=== PATIENT | female | born 1965 | race Asian ===

== ENCOUNTER 2019-05-21 18:43 | Emergency (ER) | payer BC ==
[2019-05-21] MEDS ORDERED: Amoxicillin 500 MG Cap PO ONE ×2 (19:50→20:25)
--- NOTE | 2019-05-21 19:54 | EDM.PDOC ---
ED HPI GENERAL MEDICAL PROBLEM - General Chief Complaint: ENT Problem Stated Complaint: TOOTH PAIN Time Seen by Provider: 05/21/19 19:33 Source of Information: Reports: Patient, RN Notes Reviewed - History of Present Illness INITIAL COMMENTS - FREE TEXT/NARRATIVE: onset of pain L lower incissors a few days ago, worse today. Aware of inflamation gum tissue base of teeth. There's been no swelling. No fever or chills. Right Lower Tooth/Teeth Pain Score (Numeric/FACES): 9 - Related Data Allergies Allergy/AdvReac Type Severity Reaction Status Date / Time No Known Allergies Allergy Verified 05/21/19 19:28 Home Meds: Home Meds Amoxicillin 500 mg PO TID #30 capsule 05/21/19 [Rx] Past Medical History - Past Health History Medical/Surgical History: Denies Medical/Surgical History Social & Family History - Tobacco Use Smoking Status *Q: Current Status Unknown ED ROS ENT - Review of Systems Review Of Systems: See Below Constitutional: Denies: Fever, Chills HEENT: Reports: Dental Pain, Other. Denies: Throat Pain, Throat Swelling (No intraoral swelling) Respiratory: Reports: No Symptoms Cardiovascular: Reports: No Symptoms GI/Abdominal: Reports: No Symptoms Musculoskeletal: Reports: No Symptoms Skin: Reports: No Symptoms Neurological: Reports: No Symptoms ED EXAM, ENT - Physical Exam Exam: See Below General Appearance: Alert, Mild Distress Mouth/Throat: Other (There is mild swelling of a lot of plaque base of the gums of her lower incisors and mouth. Very slight tenderness over the right lower lateral incisor.). No: Pharyngeal Erythema, Throat Swelling Head: No: Facial Swelling, Facial Tenderness Neck: Supple. No: Lymphadenopathy (L), Lymphadenopathy (R) Respiratory/Chest: No Respiratory Distress Cardiovascular: Regular Rate, Rhythm Neurological: Alert, Oriented, No Motor/Sensory Deficits Skin: Warm, Dry, Normal Color Course - Vital Signs Last Recorded V/S: Last Vital Signs Temp 97.4 F 05/21/19 19:26 Pulse 87 05/21/19 19:26 Resp 16 05/21/19 19:26 BP 200/98 H 05/21/19 19:26 Pulse Ox 98 05/21/19 19:26 - Orders/Labs/Meds Meds: Medications Discontinued Medications Generic Name Dose Route Start Last Admin Trade Name Freq PRN Reason Stop Dose Admin Amoxicillin 1,000 mg 05/21/19 19:50 05/21/19 20:18 Amoxil PO 05/21/19 19:51 1,000 mg ONETIME ONE Administration Amoxicillin 1,000 mg 05/21/19 20:25 05/21/19 20:32 Amoxil PO 05/21/19 20:26 1,000 mg ONETIME ONE Administration Departure - Departure Time of Disposition: 19:51 Disposition: Home, Self-Care 01 Condition: Fair Clinical Impression: Gingivitis, acute - Discharge Information Prescriptions: Amoxicillin 500 mg PO TID #30 capsule Instructions: Gingivitis, [id number] Referrals: PCP,Not In Area [Primary Care Provider] - Forms: ED Department Discharge Additional Instructions: amoxicillin 500 mg 3 times daily, mouth wash 4 to 5 times daily, tylenol 3 times daily, you may take advil or ibuprofen in between doses of tylenol for extra pain relief as needed, see dentist if not much better within 5 to 7 days or if symptoms worsening in any way.
== END 2019-05-21 20:15 | disposition home or self-care (01) ==
LOC: JD.ED 18:43
DX: K05.00 Acute gingivitis, plaque induced (principal)
CPT/HCPCS: 99282; A9270